=== PATIENT | male | born 1990 | race Caucasian/White ===

== ENCOUNTER 2021-02-19 05:33 | Day surgery (SDC) | payer OTHER ==
[2021-02-12 13:31] VITALS: BMI 28.7
[~2021-02-19 05:33] MED LIST: ACETAMINOPHEN TAB 500 MG TAB PO PRN; HEPARIN SODIUM,PORCINE/PF 5,000 UNIT/0.5 ML SYRINGE SQ PRN
[2021-02-19] MEDS ORDERED: SCOPOLAMINE 1.5MG/72HR PATCH TRANSDERM ONE (05:35)
[2021-02-19] MEDS ORDERED: DEXAMETHASONE SOD PHOSPHATE 4 MG/ML 1 ML VIAL IV ONE (05:35)
[2021-02-19] MEDS ORDERED: LIDOCAINE 1% (10MG/ML) FOR IV START INTRADERMA PRN (05:35)
[2021-02-19] MEDS ORDERED: ONDANSETRON 4 MG/2 ML VIAL IVP ONE (05:35)
[2021-02-19] MEDS ORDERED: LACTATED RINGERS 1,000 ML IV SCH (05:35)
[2021-02-19] MEDS ORDERED: LIDOCAINE 1% INJ 10MG/ML (20 ML MDV) ONE ×2 (06:43→07:55)
[2021-02-19] MEDS ORDERED: HYDROmorphone 0.5 MG/0.5 ML SYRINGE IVP PRN (07:00)
[2021-02-19] MEDS ORDERED: MIDAZOLAM 2 MG/2 ML VIAL IVP ONE (07:27)
[2021-02-19] MEDS ORDERED: KETOROLAC 15 MG/ML 1 ML VIAL ONE (07:55)
[2021-02-19] MEDS ORDERED: MIDAZOLAM 2 MG/2 ML VIAL ONE (07:55)
[2021-02-19] MEDS ORDERED: DEXAMETHASONE SOD PHOSPHATE 4 MG/ML 1 ML VIAL ONE (07:55)
[2021-02-19] MEDS ORDERED: fentaNYL (PF) 50 MCG/ML 2 ML AMP ONE (07:55)
[2021-02-19] MEDS ORDERED: SUCCINYLCHOLINE CHLORIDE 100 MG/5 ML SYR IV ONE (07:55)
[2021-02-19] MEDS ORDERED: NEOSTIGMINE 1 MG/ML 10 ML VIAL ONE (07:55)
[2021-02-19] MEDS ORDERED: ROPIVACAINE 5 MG/ML 30 ML VIAL ONE (07:55)
[2021-02-19] MEDS ORDERED: PROPOFOL 10 MG/ML 20 ML VIAL IV ONE (07:55)
[2021-02-19] MEDS ORDERED: GLYCOPYRROLATE 0.2 MG/ML 2 ML VIAL ONE (07:55)
[2021-02-19] MEDS ORDERED: VECURONIUM 10 MG VIAL IV ONE (07:55)
[2021-02-19] MEDS ORDERED: BUPIVACAINE (PF) 0.5% 30 ML VIAL SQ ONE (08:24)
[2021-02-19] MEDS ORDERED: LACTATED RINGERS 1,000 ML IV ONE ×2 (09:03→09:45)
[2021-02-19 09:18] VITALS: TEMP 99.1
--- NOTE | 2021-02-19 09:21 | P.GSHP ---
History of Present Illness H&P Date: 02/19/21 Chief Complaint: Incarcerated umbilical hernia This a 30-year-old male who has developed an incarcerated we'll hernia. Patient presents today for laparoscopic robotic-assisted repair. Past Medical History Past Medical History: GERD/Reflux Additional Past Medical History / Comment(s): UMBILICAL HERNIA History of Any Multi-Drug Resistant Organisms: None Reported Past Surgical History: No Surgical Hx Reported Additional Past Anesthesia/Blood Transfusion Reaction / Comment(s): NO ANESTHESIA HX Past Psychological History: No Psychological Hx Reported Smoking Status: Former smoker Past Alcohol Use History: Occasional Additional Past Alcohol Use History / Comment(s): QUIT SMOKING 2014 Past Drug Use History: None Reported - Past Family History Mother Family Medical History: No Reported History Medications and Allergies Home Medications Medication Instructions Recorded Confirmed 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 1 tab PO DIRECTED PRN 02/12/21 History Acetaminophen Tab [Tylenol Tab] 500 mg PO Q4H 02/19/21 02/19/21 History Allergies Allergy/AdvReac Type Severity Reaction Status Date / Time No Known Allergies Allergy Verified 02/12/21 13:06 Surgical - Exam Vital Signs Temp Pulse Resp BP Pulse Ox 98.6 F 96 16 129/79 95 02/19/21 06:05 02/19/21 06:05 02/19/21 06:05 02/19/21 06:05 02/19/21 06:05 - General well developed, well nourished, no distress - Eyes PERRL - ENT normal pinna, normal nares - Neck no masses - Respiratory normal expansion - Cardiovascular Rhythm: regular - Abdomen Abdomen: soft, non tender Hernia: umbilical (2 cm incarcerated umbilical hernia) Assessment and Plan Assessment: Incarcerated local hernia. We'll perform laparoscopic robotic system repair.
--- NOTE | 2021-02-19 09:24 | P.OP ---
Date of Procedure: 02/19/21 Preoperative Diagnosis: Incarcerated umbilical hernia Postoperative Diagnosis: Incarcerated umbilical hernia Procedure(s) Performed: Laparoscopic robotic-assisted repair of incarcerated umbilical hernia Partial omentectomy Anesthesia: JEREMÍAS Surgeon: Akhil Rojo Estimated Blood Loss (ml): 5 Pathology: other (Omentum) Condition: stable Disposition: PACU Description of Procedure: The patient was placed on the operating table in the supine position. He received general anesthesia. His abdomen was prepped and draped usual fashion. Using a 5 mm optical trocar under direct visualization the peritoneal cavity was entered in the left upper quadrant. The abdomen was then insufflated. The laparoscope was placed back into the perineal cavity. Next a 8 mm robotic trocar was placed in the left lower quadrant and a 12 mm robotic trocar was placed in the left lateral position. The original 5 mm trocar was exchanged for a 8 mm robotic trocar. The patient's placed in the left side up position. And the patient was undocked the robot. The umbilical hernia was visualized. Using hook cautery the peritoneum over the umbilical hernia was excised. The incarcerated omentum was transected and sent to pathology. The fascial opening was repaired using 0V LOC suture. Next a piece of 11 cm round ventral light ST mesh was placed into the. Cavity and secured with 2 OV lock suture. The patient was undocked the robot. The needles were retrieved. The fascia of the 12 mm trocar site was closed with 0 Ethibond suture. Skin was closed interrupted 3-0 Monocryl suture. Dermabond dressings was applied. Patient top procedure well and was sent to recovery room stable condition.
[2021-02-19 10:12] VITALS: BP 118/75; PULSE 79; RESP 16
--- NOTE | 2021-02-20 13:41 | P.ANPRN ---
Procedure Note - Anesthesia - Nerve Block Performed Bilateral Rectus Abdominis Single Time Out Performed: Yes Date of Procedure: 02/19/21 Procedure Start Time: : Procedure Stop Time: :33 Location of Patient: PreOp Indication: Acute Post-Operative Pain, Requested by Surgeon Sedation Type: Sedate with meaningful contact maintained Preparation: Sterile Prep Position: Supine Needle Types: Pajunk Needle Gauge: 21 Ultrasound used to visualize needle placement: Yes Ultrasound used to observe medication spread: Yes Blood Aspirated: No Pain Paresthesia on Injection Noted: No Resistance on Injection: Normal Image Stored and Saved: Yes Events: Uneventful and Well Tolerated (ropi .5% 20cc plus dexamethasone 4mg bilaterally)
== END 2021-02-19 10:41 | disposition home or self-care (01) ==
LOC: OR 05:33
PROVIDERS: ATTEND Surgery
DX: K42.0 Umbilical hernia with obstruction, without gangrene (principal); K21.9 Gastro-esophageal reflux disease without esophagitis
CPT/HCPCS: 49653; S2900; 64999; 88302

== ENCOUNTER 2021-02-21 09:07 | Day surgery (SDC) | payer OTHER ==
[2021-02-20 11:10] VITALS: BMI 28.6
[~2021-02-21 09:07] MED LIST changes: -ACETAMINOPHEN TAB 500 MG TAB PO PRN; -HEPARIN SODIUM,PORCINE/PF 5,000 UNIT/0.5 ML SYRINGE SQ PRN; +LACTATED RINGERS 1,000 ML IV SCH
[2021-02-21] MEDS ORDERED: LIDOCAINE 1% (10MG/ML) FOR IV START INTRADERMA ONE (09:44)
[2021-02-21 09:53] VITALS: RESP 16; TEMP 97.3
[2021-02-21] MEDS ORDERED: PROPOFOL 10 MG/ML 20 ML VIAL IV ONE (10:52)
--- NOTE | 2021-02-21 10:58 | P.GSHP ---
History of Present Illness H&P Date: 02/21/21 Chief Complaint: GERD Is a 30-year-old male who presents today for EGD. He's had issues with GERD. Past Medical History Past Medical History: GERD/Reflux Additional Past Medical History / Comment(s): hx umbilivcal hernia History of Any Multi-Drug Resistant Organisms: None Reported Past Surgical History: No Surgical Hx Reported Additional Past Surgical History / Comment(s): 02-19-21 robotic incarcerated umbilical hernia repair Past Anesthesia/Blood Transfusion Reactions: No Reported Reaction Additional Past Anesthesia/Blood Transfusion Reaction / Comment(s): NO ANESTHESIA HX Smoking Status: Former smoker - Past Family History Mother Family Medical History: No Reported History Medications and Allergies Home Medications Medication Instructions Recorded Confirmed 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 1 tab PO DIRECTED PRN 02/12/21 02/21/21 History Acetaminophen Tab [Tylenol] 650 mg PO Q6H #30 tab 02/19/21 02/21/21 Rx Docusate [Colace] 100 mg PO BID #20 cap 02/19/21 02/21/21 Rx Ibuprofen [Motrin] 600 mg PO Q6HR PRN #40 tab 02/19/21 02/21/21 Rx oxyCODONE HCL [OxyIR] 5 mg PO Q6H PRN 3 Days #10 tab 02/19/21 02/21/21 Rx Allergies Allergy/AdvReac Type Severity Reaction Status Date / Time No Known Allergies Allergy Verified 02/20/21 11:02 Surgical - Exam Vital Signs Temp Pulse Resp BP Pulse Ox 97.3 F L 74 16 130/86 97 02/21/21 09:50 02/21/21 09:50 02/21/21 09:50 02/21/21 09:50 02/21/21 09:50 - General well developed, well nourished, no distress - Eyes PERRL - ENT normal pinna - Neck no masses - Respiratory normal expansion - Cardiovascular Rhythm: regular - Abdomen Abdomen: soft, non tender Assessment and Plan Assessment: GERD. We'll perform EGD.
--- NOTE | 2021-02-21 11:10 | P.OP ---
Date of Procedure: 02/21/21 Preoperative Diagnosis: GERD Postoperative Diagnosis: Antral gastritis Sliding hiatal hernia Esophagitis Procedure(s) Performed: EGD Anesthesia: JEREMÍAS Surgeon: Akhil Rojo Pathology: other (Antrum, esophagus) Condition: stable Disposition: PACU Description of Procedure: Patient's placed on the endoscopy table in the lateral position. She received IV sedation. The gastroscope some placed oropharynx past esophagus and stomach. Scope was placed through the pylorus. The first and second portion of the duodenum appeared normal. Scope was then brought back the antrum this. Mildly inflamed. A biopsies performed. Scope was then retroflexed and the remainder the stomach appeared normal. There was a small sliding hiatal hernia. The GE junction was at 38 cm. The distal esophagus. Inflamed this was biopsied. The proximal esophagus appeared normal. Scope was withdrawn for patient.
[2021-02-21 11:37] VITALS: BP 117/84; PULSE 58
== END 2021-02-21 11:55 | disposition home or self-care (01) ==
LOC: ORWHC2ENDO 09:07
PROVIDERS: ATTEND Surgery
DX: K29.50 Unspecified chronic gastritis without bleeding (principal); K44.9 Diaphragmatic hernia without obstruction or gangrene; K21.00 Gastro-esophageal reflux disease with esophagitis, without bleeding; Z79.1 Long term (current) use of non-steroidal anti-inflammatories (NSAID); Z87.891 Personal history of nicotine dependence; Z79.899 Other long term (current) drug therapy
CPT/HCPCS: 43239; 88305; J2704